=== PATIENT | female | born 1995 | race Caucasian/White ===

== ENCOUNTER 2024-02-08 16:23 | Emergency (ER) | payer OTHER, SELFPAY ==
[2024-02-08 16:26] VITALS: BP 144/78
[2024-02-08 16:44] LABS: Urine Albumin Negative (Neg - Trace); Urine Bilirubin Negative (Negative); Urine Character Clear (Clear); Urine Color Yellow; Urine Glucose Negative (Negative); Urine Ketone Negative (Negative); Urine Leukocyte 1+ (Negative); Urine Nitrite Negative (Negative); Urine Occult Blood Negative (Negative); Urine Urobilinogen Negative (Neg - 1+)
[2024-02-08 16:53] LABS: Urine Red Blood Cell None Seen /HPF (0-2)
--- NOTE | 2024-02-08 17:20 | ED.GENMED ---
History of Present Illness
General
Chief Complaint: Abdominal Pain
Source: patient
Exam Limitations: none
Time Seen by Provider: 02/08/24 16:59
Travel History
Have you had any contact with someone who has COVID-19?: No
Do you have any symptoms of coronavirus? Fever > 100 degrees, chills, cough, shortness of breath, sore throat, loss of taste or smell, muscle aches, or headache?: No
History of Present Illness
History of Present Illness:
pt is a 28 y/o F with h/o OCD
here with RLQ pain x 4 days
started gradually a few days ago and moved to RLQ, then radiates to lower back and a little down her leg
worse with bending over
no fevre, chills, vomiting, consstipation
had a few episodes of looser stool today
some urinary frequency but no dysuria or hematuria
has had ovarian cyst previously but it felt different
lmp 8-9 days ago
Past History
Past History
ED Past Medical History: Psychiatric
ED Past Surgical History: None
Social History
Tobacco: Non-smoker
Alcohol: None
Drug: None
Review of Systems
Review of Systems
Allergies reviewed?: Yes
All Other Systems: Not applicable
Phy Exam
Physical Exam
Physical Exam:
GENERAL: Alert , in no apparent distress
EYE: pupils equal and reactive
NECK: Supple
ENT: o/p clr, mmm.
CARDIAC: Regular rate and rhythm .
LUNGS: Clear breath sounds bilaterally, no acute respiratory distress, no wheezes/rales/rhonchi
ABDOMEN: Soft, mild RLQ tendneress over mcburney's point, no pelvic tenderness; no r/g, no cvat, normal bowel sounds
NEUROLOGICAL: Alert and oriented, no focal neuro deficits
SKIN: Warm and dry, skin intact.
MUSCULOSKELETAL: No edema, well perfused.
PSYCH: Normal and appropriate interaction.
Course
Orders/Labs/Results
Orders:
Orders
02/08/24 16:34
HCG, Urine Qualitative Screen Urgent
Date Specimen was Collected: 02/08/24
Time Specimen was Collected: 16:31
Comment: ADD ON
Urinalysis Reflex To Culture Urgent
Date Specimen was Collected: 02/08/24
Time Specimen was Collected: 16:31
Urine Microscopic Reflex Cult Urgent
Urine Culture Urgent
LION Source: U
Specimen Description:
Date Specimen was Collected: 02/08/24
Time Specimen was Collected: 16:31
02/08/24 17:18
CT Abd/Pel (IV only)-DH only Urgent
Comment:
Reason For Exam: rlq pain x 4 days, wosrening, tender
Test Result ONCE
02/08/24 17:40
Complete Blood Count/With Diff Urgent
02/08/24 18:11
Add On- LAB Urgent
Tests Added?: hcg urine
02/08/24 18:17
Comprehensive Metabolic Panel Urgent
Abnormal Lab Results
02/08/24 02/08/24
16:34 17:40
WBC 11.3 H 10^3/uL
(4.8-10.8)
Absolute Neuts (auto) 6.9 H 10^3/uL
(1.4-6.5)
Absolute Monos (auto) 0.8 H 10^3/uL
(0.1-0.6)
Leukocyte Esterase Rfl 1+ A
(Negative)
02/08/24 17:40
02/08/24 18:17
Vital Signs
Initial and Last Documented VS:
Initial Vital Signs
Temp Pulse Resp BP Pulse Ox
98.3 F 87 16 144/78 97
02/08/24 16:26 02/08/24 16:26 02/08/24 16:26 02/08/24 16:26 02/08/24 16:26
Last Documented Vital Signs
Temp Pulse Resp BP Pulse Ox
98.3 F 71 16 128/76 97
02/08/24 16:26 02/08/24 20:25 02/08/24 16:26 02/08/24 20:25 02/08/24 16:26
MDM/Problems Addressed
Differential Diagnosis Includes:
appe, ovarian cyst, kdineys tone, msk pain
MDM/Problems Addressed:
28-year-old female with right lower quadrant pain started out as suprapubic pain and in both sides of her abdomen and moved to her right lower quadrant a few days ago, worse with bending and walking and having a bowel movement. No associated
nausea, vomiting, diarrhea, urinary symptoms other than mild frequency. She has had an ovarian cyst but this feels different. No leg weakness but feels the pain radiating to her leg. Her exam she has focal tenderness to the right lower quadrant,
no pelvic tenderness, no back tenderness, full leg range of motion, no signs of cauda equina. White count 11.3, no other concerning lab abnormalities, 1+ leuks with 6-10 whites with no nitrate no blood, CT abdomen pelvis shows a normal appendix, a
small left ovarian cyst, on the opposite side of the pain, no hydro to the kidney. Patient feels well. Discharge home, return precautions, Motrin, follow-up CUSTOMER TECHNICAL SERVICES MANAGER
*Critical Care Note
Total Time (30-74mins, 75-104mins- exclusive of procedures): Not Applicable
ED Attending Note
-
Portions of this chart may have been created with voice recognition software.� Occasional wrong word or��sound alike� substitutions may have occurred due to the inherent limitations of voice recognition software.
Discharge Plan
Departure
Patient Disposition: Home (Routine Discharge)
Date of Disposition: 02/08/24
Time of Disposition: 20:11
Patient with high blood pressure during this ER visit?: No
Condition: Fair
Covid-19: Not Applicable
Discharge Problem:
Abdominal pain, Ovarian cyst
Instructions: Ovarian Cyst (DC), Abdominal Pain
Prescriptions:
No Action
ondansetron 4 MG tablet,disintegrating
4 mg PO TIDPRN PRN (Reason: nausea/vomiting) Qty: 12 0RF
Referrals:
Radha Sanches MD [Primary Care Provider] - Follow up in 2-3 days
Activity Restrictions/Additional Instructions:
Not entirely sure the cause of your abdominal pain but your CAT scan was reassuring. You do have an ovarian cyst on the left side. This could be causing some lower abdominal discomfort but not necessarily the pain on your right side. This could
be muscular or gas. Take ibuprofen and Tylenol for pain. Watch for worsening symptoms like fever, chills, leg weakness or numbness, vaginal bleeding, diarrhea or vomiting etc. and return to the ER as needed. Otherwise follow-up with your family
doctor and also your CUSTOMER TECHNICAL SERVICES MANAGER
Interventions
Interventions:
*Risk Screen - Suicide Last Done: 02/08/24 16:26
*General Assessment Last Done: 02/08/24 20:25
*Neglect/Abuse Screening Last Done: 02/08/24 16:26
ED- Fall Risk Assessment Last Done: 02/08/24 17:21
*ED COVID-19 Vaccine History Last Done: 02/08/24 16:26
*Nursing Disposition Last Done: 02/08/24 20:25
GR-Eulbpp-Tghwstgaet Assessment Last Done: 02/08/24 17:21
Discharge Date and Time
Discharge Date/Time: 02/08/24 20:26
Print Language: BELIZEAN
[2024-02-08 17:45] LABS: % Basophils 0.8 % (0-2); % Eosinophils 1.8 % (0-6); % Immature Granulocytes 0.3 % (0-0.5); % Monocytes 7.1 % (1.7-9.3); Absolute Basophils 0.1 10^3/uL (0-0.2); Absolute Eosinophils 0.2 10^3/uL (0-0.7); Absolute Lymphocytes 3.3 10^3/uL (1.2-3.4); Absolute Monocytes 0.8 10^3/uL (0.1-0.6); Absolute Neutrophils 6.9 10^3/uL (1.4-6.5); Hematocrit 38.7 % (37.0-47.0); Mean Corp Hgb Conc. 33.6 g/dL (33.0-37.0); Mean Corpuscular Hgb 27.8 pg (27.0-31.0); Mean Corpuscular Volume 82.9 fL (81.0-99.0); Mean Platelet Volume 9.4 fL (7.4-10.4); Nucleated Red Blood Cells % 0 %; Platelet Count 382 10^3/uL (130-400); Red Blood Cell Count 4.67 10^6/uL (4.20-5.40); Red Cell Dist. Width 12.9 % (11.5-14.5); White Blood Cell Count 11.3 10^3/uL (4.8-10.8)
[2024-02-08 18:23] LABS: HCG, Urine Qualitative Screen Negative
[2024-02-08 18:42] LABS: ALT (SGPT) 13 U/L (0-35); AST (SGOT) 21 U/L (14-36); Albumin 4.2 g/dl (3.5-5.0); Alkaline Phosphatase 87 U/L (38-126); Blood Urea Nitrogen 13 mg/dl (7-17); Carbon Dioxide 24 mmol/L (22-30); Glucose 92 mg/dl (70-99); Total Bilirubin 0.3 mg/dl (0.2-1.3); Total Protein 7.5 g/dl (6.3-8.2); eGFR > 60.00
[2024-02-08 18:51] LABS: Chloride 105 mmol/L (98-107); Potassium 4.5 mmol/L (3.5-5.1); Sodium 137 mmol/L (135-145)
[2024-02-08 19:06] VITALS: BP 146/84
[2024-02-08 20:16] VITALS: BP 128/76
[2024-02-08 20:25] VITALS: BP 128/76
== END 2024-02-08 20:26 | disposition home or self-care (01) ==
LOC: EMR 16:23
PROVIDERS: Physician Assistant; EMERGENCY PHYSICIAN Emergency Medicine; PRIMARYCARE PHYSICIAN Family Medicine
DX: R10.9 Unspecified abdominal pain (principal); N83.202 Unspecified ovarian cyst, left side; F42.9 Obsessive-compulsive disorder, unspecified
CPT/HCPCS: 99284; 74177; 80053; 81003; 81015; 81025; 85025; 87086; Q9967

== ENCOUNTER 2024-02-28 14:33 | Emergency (ER) | payer OTHER, SELFPAY ==
[2024-02-28 14:34] VITALS: BP 147/86
--- NOTE | 2024-02-28 15:00 | ED.GENMED ---
History of Present Illness
General
Chief Complaint: Head Injury
Time Seen by Provider: 02/28/24 14:44
Travel History
Have you had any contact with someone who has COVID-19?: No
Do you have any symptoms of coronavirus? Fever > 100 degrees, chills, cough, shortness of breath, sore throat, loss of taste or smell, muscle aches, or headache?: No
History of Present Illness
History of Present Illness:
28-year-old female with history of OCD presents to the emergency department for evaluation of headaches, photophobia, difficulty focusing, and difficulty sleeping/irritability for the past 2 to 3 days. She states this began after being struck in
the head by her dog, she is uncertain exactly how this occurred but states that the dog jumped onto her and landed on her head. There is no loss of consciousness or vomiting. No vision changes, vomiting, or vertigo. Does not take any
anticoagulants.
Past History
Past History
ED Past Medical History: Psychiatric
ED Past Surgical History: None
Social History
Tobacco: Non-smoker
Alcohol: None
Drug: None
Review of Systems
Review of Systems
Allergies reviewed?: Yes
All Other Systems: ROS reviewed and negative except as documented in HPI and ROS
Phy Exam
Physical Exam
Physical Exam:
GEN: Well appearing, NAD, WDWN
HEENT: Oral mucosa moist, no scleral icterus, no nasal congestion
Cardiac: Regular rate
Lung: No respiratory distress, no tachypnea
MSK: No gross deformity or injuries
Skin: Good color, no pallor or jaundice, no rashes
Neuro: AO x3; CN II-XII grossly intact. BUE strength 5/5 in all jefferson, sensation intact and symmetric. BLE strength 5/5 in all jefferson, sensation intact and symmetric, normal gait
Psych: Calm, cooperative
Course
Vital Signs
Initial and Last Documented VS:
Initial Vital Signs
Temp Pulse Resp BP Pulse Ox
98.2 F 87 18 147/86 97
02/28/24 14:34 02/28/24 14:34 02/28/24 14:34 02/28/24 14:34 02/28/24 14:34
Last Documented Vital Signs
Temp Pulse Resp BP Pulse Ox
98.2 F 87 18 147/86 97
02/28/24 14:34 02/28/24 14:34 02/28/24 14:34 02/28/24 14:34 02/28/24 14:34
MDM/Problems Addressed
MDM/Problems Addressed:
Patient symptoms consistent with concussion. She is greater than 24 hours post injury with no focal neurologic deficits warranting imaging of the brain to rule out intracranial hemorrhage or skull fracture. Supportive care discussed with patient
*Critical Care Note
Total Time (30-74mins, 75-104mins- exclusive of procedures): Not Applicable
ED Attending Note
-
Portions of this chart may have been created with voice recognition software.� Occasional wrong word or��sound alike� substitutions may have occurred due to the inherent limitations of voice recognition software.
Discharge Plan
Departure
Patient Disposition: Home (Routine Discharge)
Date of Disposition: 02/28/24
Time of Disposition: 15:00
Patient with high blood pressure during this ER visit?: No
Discharge Problem:
Concussion
Instructions: Concussion, Adult (DC)
Prescriptions:
No Action
ondansetron 4 MG tablet,disintegrating
4 mg PO TIDPRN PRN (Reason: nausea/vomiting) Qty: 12 0RF
Stand Alone Forms: Return to Work
Interventions
Interventions:
*Risk Screen - Suicide Last Done: 02/28/24 14:34
*General Assessment Last Done: 02/28/24 14:34
*Neglect/Abuse Screening Last Done: 02/28/24 14:34
ED- Fall Risk Assessment Last Done: 02/28/24 15:06
*ED COVID-19 Vaccine History Last Done: 02/28/24 14:34
*Nursing Disposition Last Done: 02/28/24 15:07
ED- Neurological Assessment Last Done: 02/28/24 15:06
ED-Skin Assessment Last Done: 02/28/24 15:06
Discharge Date and Time
Discharge Date/Time: 02/28/24 15:08
Print Language: NORWEGI[place]
== END 2024-02-28 15:08 | disposition home or self-care (01) ==
LOC: EMR 14:33
PROVIDERS: EMERGENCY PHYSICIAN Emergency Medicine; FAMILY PHYSICIAN Family Medicine
DX: S06.0XAA Concussion with loss of consciousness status unknown, initial encounter (principal); W54.1XXA Struck by dog, initial encounter; F42.9 Obsessive-compulsive disorder, unspecified
CPT/HCPCS: 99282

== ENCOUNTER 2024-12-19 09:19 | Emergency (ER) | payer BC, SELFPAY ==
[2024-12-19 09:24] VITALS: BP 118/78
--- NOTE | 2024-12-19 10:17 | ED.GENMED ---
History of Present Illness
General
Chief Complaint: Abdominal Pain
Source: patient
Exam Limitations: none
Time Seen by Provider: 12/19/24 10:05
History of Present Illness
History of Present Illness:
29yoF with no significant past medical history presenting for evaluation of abdominal pain. Symptoms initially started 2 nights ago. The pain was initially located in the central abdomen and is now worse on the right side of the abdomen. Pain is
present in both the right upper and right lower quadrants. She describes the pain as a cramping discomfort and currently rates her pain as a 5 out of 10 in severity. Pain is worse with movement. She did eat some soup yesterday which also
exacerbated her pain. She has tried Tylenol without much relief. She also reports nausea but denies any vomiting. She is otherwise asymptomatic and denies any fevers, diarrhea, constipation, dysuria, urinary frequency, vaginal bleeding, vaginal
discharge. Last bowel movement was this morning which was normal. Last menstrual period was 3 weeks ago. No previous abdominal surgeries. Of note, patient is being evaluated by gastroenterology as an outpatient and was told that she might have
IBS. She is scheduled to have a right upper quadrant ultrasound next week to evaluate for gallstones.
Past History
Past History
ED Past Medical History: Psychiatric
ED Past Surgical History: None
Social History
Tobacco: Non-smoker
Alcohol: None
Drug: None
Phy Exam
General Physical Exam
General Presentation: well appearing and no apparent distress
General age: appears stated age
General Skin: warm and dry
General Habitus: normal
General Mental: alert
ENT Exam
ENT Exam: normocephalic
Cardiovascular Exam
Cardiovascular Exam: regular rate/rhythm and no murmur
Pulmonary Exam
Pulmonary Exam: lungs clear, no respiratory distress, no rales, no crackles and no rhonchi
Gastrointestinal Exam
Gastrointestinal Exam: soft, non distended and other (+Generalized abdominal tenderness that is worse in the RUQ/RLQ. Abdomen soft, non-distended. No rebound or guarding. Negative [place]'s sign.)
Neurological Exam
Neurological Exam: alert
[place] Coma Scale
Eye Opening: Spontaneous
Verbal Response: Oriented
Motor Response: Obeys Commands
GCS Total Score: 15
Skin Exam
Skin Exam: normal color and warm/dry
Psychiatric Exam
Psychiatric Exam: normal mood/affect
Course
Orders/Labs/Results
Orders:
Orders
12/19/24 10:15
CT Abd/pelvis W Iv Cont Urgent
Comment:
Reason For Exam: R sided, central abd pain
Test Result ONCE
12/19/24 10:50
Urinalysis Reflex To Culture Urgent
Date Specimen was Collected: 12/19/24
Time Specimen was Collected: 10:23
Urine Microscopic Reflex Cult Urgent
Urine Culture Urgent
LION Source: U
Specimen Description:
Date Specimen was Collected: 12/19/24
Time Specimen was Collected: 10:23
12/19/24 10:53
Complete Blood Count/With Diff Urgent
Comprehensive Metabolic Panel Urgent
HCG, Serum Qualitative Screen Urgent
Lipase Urgent
Abnormal Lab Results
12/19/24 12/19/24
10:50 10:53
Calcium 10.4 H mg/dl
(8.4-10.2)
Urine Ketones 1+ A
(Negative)
Leukocyte Esterase Rfl 1+ A
(Negative)
Urine RBC 3-6 A /HPF
(0-2)
Urine Bacteria (Reflex) Few A
(Negative)
Urine Albumin (Reflex) 1+ A
(Neg - Trace)
12/19/24 10:53
12/19/24 10:53
Vital Signs
Initial and Last Documented VS:
Initial Vital Signs
Pulse Resp BP Pulse Ox
87 20 118/78 100
12/19/24 09:24 12/19/24 09:24 12/19/24 09:24 12/19/24 09:24
Last Documented Vital Signs
Temp Pulse Resp BP Pulse Ox
98.3 F 67 16 120/68 98
12/19/24 10:55 12/19/24 12:59 12/19/24 10:55 12/19/24 12:59 12/19/24 12:59
MDM/Problems Addressed
Differential Diagnosis Includes:
29yoF here with abd pain. Initially was central and now pain is located on the R side. Worse with movement. +Nausea. Otherwise asymptomatic. Currently being worked up for possible IBS in the outpatient setting. VSS. She is well appearing in no
distress. No signs of peritonitis on abdominal exam. Differential diagnosis includes but is not limited to: appendicitis, cholecystitis, biliary colic, appendicitis, ovarian cyst, mesenteric adenitis, constipation, nonspecific abdominal pain
Initial ED plan: Check abdominal labs, HCG, UA, and CT abdomen. She declines analgesics.
*Critical Care Note
Total Time (30-74mins, 75-104mins- exclusive of procedures): Not Applicable
Update Note
Update Note:
Labs unremarkable including normal white count, lipase, renal function, LFTs. HCG negative. No overt signs of infection on urinalysis. CT shows a 1.7cm partially collapsed corpus luteal cyst in the R ovary as well as mild RLQ mesenteric
lymphadenopathy. Appendix and gallbladder appear normal. Unclear if these imaging findings explain her pain. No indication for hospitalization. Will trial Bentyl. She was advised to f/u closely with GI and her PCP. Strict ED return precautions
discussed. Patient expressed understanding and was discharged in stable condition.
ED Attending Note
-
Portions of this chart may have been created with voice recognition software.� Occasional wrong word or��sound alike� substitutions may have occurred due to the inherent limitations of voice recognition software.
Discharge Plan
Departure
Patient Disposition: Home (Routine Discharge)
Date of Disposition: 12/19/24
Time of Disposition: 12:56
Patient with high blood pressure during this ER visit?: No
Discharge Problem:
Nonspecific abdominal pain
Instructions: Abdominal Pain
Prescriptions:
New
dicyclomine 20 mg tablet
20 mg PO QID PRN (Reason: abdominal cramping) Qty: 20 0RF
No Action
ondansetron 4 MG tablet,disintegrating
4 mg PO TIDPRN PRN (Reason: nausea/vomiting) Qty: 12 0RF
Referrals:
Radha Sanches MD [Family Provider] -
Stand Alone Forms: Return to Work
Activity Restrictions/Additional Instructions:
Take Bentyl as needed for abdominal cramping.
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 Return to the ER with any new or worsening symptoms including severe pain and fevers.
Interventions
Interventions:
*Risk Screen - Suicide Last Done: 12/19/24 09:24
*General Assessment Last Done: 12/19/24 09:24
*Neglect/Abuse Screening Last Done: 12/19/24 09:24
*ED- Fall Risk Assessment Last Done: 12/19/24 10:25
*ED COVID-19 Vaccine History Last Done: 12/19/24 10:25
*Nursing Disposition Last Done: 12/19/24 13:35
EX-Bihocn-Fivxogaqjt Assessment Last Done: 12/19/24 10:25
Discharge Date and Time
Discharge Date/Time: 12/19/24 13:36
Print Language: TELUG[place]
[2024-12-19 10:25] VITALS: BMI 40.4
[2024-12-19 10:55] VITALS: BP 124/67
[2024-12-19 11:09] LABS: % Basophils 0.8 % (0-2); % Eosinophils 1.7 % (0-6); % Immature Granulocytes 0.2 % (0-0.5); % Lymphocytes 25.2 % (20.5-51.1); % Monocytes 4.9 % (1.7-9.3); % Neutrophils 67.2 % (42.2-75.2); Absolute Basophils 0.1 10^3/uL (0-0.2); Absolute Eosinophils 0.2 10^3/uL (0-0.7); Absolute Lymphocytes 2.2 10^3/uL (1.2-3.4); Absolute Monocytes 0.4 10^3/uL (0.1-0.6); Absolute Neutrophils 5.9 10^3/uL (1.4-6.5); Hematocrit 43.5 % (37.0-47.0); Hemoglobin 14.5 g/dL (12.0-16.0); Mean Corp Hgb Conc. 33.3 g/dL (33.0-37.0); Mean Corpuscular Hgb 27.4 pg (27.0-31.0); Mean Corpuscular Volume 82.2 fL (81.0-99.0); Mean Platelet Volume 9.6 fL (7.4-10.4); Nucleated Red Blood Cells % 0 %; Platelet Count 333 10^3/uL (130-400); Red Blood Cell Count 5.29 10^6/uL (4.20-5.40); Red Cell Dist. Width 13.3 % (11.5-14.5); White Blood Cell Count 8.7 10^3/uL (4.8-10.8)
[2024-12-19 11:20] LABS: HCG, Serum Qualitative Screen Negative
[2024-12-19 11:23] LABS: ALT (SGPT) 26 U/L (0-35); AST (SGOT) 25 U/L (14-36); Albumin 4.5 g/dl (3.5-5.0); Alkaline Phosphatase 101 U/L (38-126); Blood Urea Nitrogen 13 mg/dl (7-17); Calcium 10.4 mg/dl (8.4-10.2); Carbon Dioxide 23 mmol/L (22-30); Chloride 105 mmol/L (98-107); Estimated Creatinine Clearance > 125 ml/min; Glucose 89 mg/dl (70-99); Lipase 49 U/L (23-300); Potassium 4.5 mmol/L (3.5-5.1); Sodium 137 mmol/L (135-145); Total Bilirubin 0.8 mg/dl (0.2-1.3); Total Protein 7.9 g/dl (6.3-8.2); eGFR > 60.00
[2024-12-19 11:23] LABS: Urine Albumin 1+ (Neg - Trace); Urine Bilirubin Negative (Negative); Urine Character Clear (Clear); Urine Color Yellow; Urine Glucose Negative (Negative); Urine Ketone 1+ (Negative); Urine Leukocyte 1+ (Negative); Urine Nitrite Negative (Negative); Urine Occult Blood Negative (Negative); Urine Specific Gravity 1.015 (<1.030); Urine Urobilinogen Negative (Neg - 1+)
[2024-12-19 11:33] LABS: Urine White Cell 0-2 /HPF (0-5)
[2024-12-19 11:34] LABS: Urine Bacteria Few (Negative)
[2024-12-19 12:59] VITALS: BP 120/68
== END 2024-12-19 13:36 | disposition home or self-care (01) ==
LOC: EMR 09:19
PROVIDERS: Physician Assistant; EMERGENCY PHYSICIAN Emergency Medicine; FAMILY PHYSICIAN Family Medicine
DX: R10.9 Unspecified abdominal pain (principal); N83.11 Corpus luteum cyst of right ovary; R59.0 Localized enlarged lymph nodes
CPT/HCPCS: 99284; 74177; 80053; 81003; 81015; 83690; 84703; 85025; 87086; Q9967